=== PATIENT | male | born 1960 | race Caucasian/White ===

== ENCOUNTER → 2016-12-20 | Outpatient (CLI) | payer BC, OTHER ==
[~2016-12-20] MED LIST: ALTA1CAP2 PO; ASPI81TA85 PO; COUM2.5T17 PO; JARD1TAB PO; METF500T4 PO; PERC5TAB12 PO; SIMV40TA2 PO; TRES1INJ2 SC; TRUL0.5I SC
[2016-12-20 11:11] LABS: INR 0.96
[2016-12-20 11:12] LABS: MEAN CORPUSCULAR HEMOGLOBIN 30.6 pg (27.0-33.0); MEAN CORPUSCULAR HGB CONC 33.9 g/dl (32.0-36.5); MEAN CORPUSCULAR VOLUME 90.1 fl (80.0-96.0); RED CELL DISTRIBUTION WIDTH 12.3 % (11.5-14.5)
--- NOTE | 2016-12-20 11:19 | REP ---
Clinical: Preoperative assessment . Comparison: None . Technique: PA and lateral. Findings: The mediastinum and cardiac silhouette are normal. Airway is midline and patent. The lung garcia are clear and without acute consolidation, effusion, or pneumothorax. Impression: 1. No acute cardiopulmonary process. Signed by Mario Bergman MD 12/20/2016 11:10 A
[2016-12-20 11:37] LABS: ALBUMIN 3.7 GM/DL (3.2-5.2); ALBUMIN/GLOBULIN RATIO 1.68 (1.00-1.93); ALKALINE PHOSPHATASE 79 U/L (45-117); ALT/SGPT 21 U/L (12-78); ANION GAP 8 MEQ/L (8-16); AST/SGOT 7 U/L (15-37); BILIRUBIN,TOTAL 0.5 MG/DL (0.2-1.0); BLOOD UREA NITROGEN 23 MG/DL (7-18); CALCIUM LEVEL 8.8 MG/DL (8.5-10.1); CARBON DIOXIDE LEVEL 30 MEQ/L (21-32); CHLORIDE LEVEL 102 MEQ/L (98-107); CREATININE FOR GFR 1.16 MG/DL (0.70-1.30); GLOMERULAR FILTRATION RATE > 60.0 (>56); GLUCOSE, FASTING 315 MG/DL (70-105); POTASSIUM SERUM 4.4 MEQ/L (3.5-5.1); SODIUM LEVEL 140 MEQ/L (136-145); TOTAL PROTEIN 5.9 GM/DL (6.4-8.2)
--- NOTE | 2016-12-20 21:40 | ECGEPIP ---
Stationary ECG Study [facility] Test Date: 2016-12-20 Pat Name: SHELDON RENTERIA Department: Room: - Gender: M Specialty Molder: [facility] : 1960 Requested By: Mario Fam Order Number: [id number] Reading MD: Jv Lu Measurements Intervals [place] Rate: 87 P: 52 IA: 187 QRS: -17 QRSD: 89 T: 43 QT: 357 QTc: 432 Interpretive Statements Normal sinus rhythm Leftward axis Incomplete right bundle branch block Comparison tracing not on file Electronically Signed On 12-20-2016 21:39:59 EDT by Jv Lu
== END ==
LOC: M ADMPAT 09:18
PROVIDERS: ATTEND Orthopaedic Surgery
DX: Z01.818 Encounter for other preprocedural examination (principal); M16.12 Unilateral primary osteoarthritis, left hip

== ENCOUNTER 2017-01-02 05:39 | Inpatient (IN) | payer BC, OTHER ==
[2016-12-20 09:35] VITALS: BP 110/78
--- NOTE | 2016-12-29 13:55 | HPE ---
DATE OF ADMISSION: 01/02/2017 HISTORY OF PRESENT ILLNESS: This is a pleasant male with continuing symptomatic left hip osteoarthritis. The patient has consented for a left total hip arthroplasty per Dr. Sarwat Smith. Medical optimization per Dr. Duran, which I have not seen clearance note. This is per the patient's history. X-rays are consistent with advanced osteoarthritis. ALLERGIES: None known to drugs. MEDICATION LIST: Includes: - simvastatin 40 mg - Ramipril 2.5 mg - Metformin HCl 500 mg - Bydureon 2 mg - Tresiba flex touch 100 units per mL - Aspir-Low 81 mg MEDICAL PROBLEM LIST: Includes: Symptomatic hip osteoarthritis. Diabetes. Hypercholesteremia. PAST SURGICAL HISTORY: Cholecystectomy, left ankle, tympanostomy tube insertion, tonsillectomy, heart catheter. FAMILY HISTORY: Cancer. SOCIAL HISTORY: Denies smoking. Rare ethanol intake. Denies illicit drugs. REVIEW OF SYSTEMS: Denies chest pain, shortness of breath, dyspnea on exertion, fever, chills, malaise, upper respiratory, urinary tract symptoms. Labs were reviewed which showed glucose of 315, BUN 23, glucose 3+ on UA, urobilinogen 2.0. Urine culture final. Nasal and sinus culture showed heavy Moraxella catarrhalis. Chest x-ray: No acute cardiopulmonary process as read by Dr. Bergman. EKG normal sinus rhythm. PHYSICAL EXAMINATION: This is a pleasant overweight white male in no acute distress. He is alert and oriented times three. Mood and affect are appropriate. He is ambulating with favoring of his right lower extremity. No gross antalgia to the left. Left hip range of motion is limited and irritable through internal and external range of motion. Bowel soft, nontender. Chest: Rises symmetrically. Neck: Supple. Negative jugular venous distention (JVD) or bruits. IMPRESSION: 1. Symptomatic left hip osteoarthritis. 2. The patient has consented for left total hip arthroplasty per Dr. Sarwat Smith. 3. Medical optimization per Dr. Duran, which we are awaiting his clearance. 4. On-call to OR, 2 grams IV Kefzol in OR. 5. Sequential compression devices (SCD) and thromboembolic deterrent stockings (TEDS) in OR. MTDD
[~2017-01-02] VITALS: Ht 172.7 cm; Wt 81.6 kg
[2017-01-02] VITALS (7 sets, daily range): BP systolic 112–131; BP diastolic 63–84
[~2017-01-02 05:39] MED LIST changes: -COUM2.5T17 PO; -PERC5TAB12 PO
[2017-01-02] MEDS ORDERED: LR 1,000 ML IV SCH ×2 (06:00→10:00)
[2017-01-02] MEDS ORDERED: LIDOCAINE 1% SDV 5 ML VIAL SQ ONE (06:00)
[2017-01-02] MEDS ORDERED: ACETAMINOPHEN 500 MG TAB PO ONE (06:00)
[2017-01-02] MEDS ORDERED: ceFAZolin 1GM INJ (J0690) As Ordered ONE (06:27)
[2017-01-02] MEDS ORDERED: PHENYLephrine HCL 500 MCG/5 ML (100MCG/ML) SYRINGE (J2370) As Ordered ONE (08:12)
[2017-01-02] MEDS ORDERED: dexameTHASONE 4 MG/ML 1ML VIAL (J1100) As Ordered ONE (08:12)
[2017-01-02] MEDS ORDERED: MIDAZOLAM INJ 2 MG/2 ML VIAL (J2250) As Ordered ONE ×2 (08:12→08:33)
[2017-01-02] MEDS ORDERED: fentaNYL 100 MCG/2 ML INJECTION (J3010) As Ordered ONE (08:12)
[2017-01-02] MEDS ORDERED: PROPOFOL 200 MG/20 ML VIAL As Ordered ONE (08:12)
[2017-01-02] MEDS ORDERED: LIDOCAINE 2% INJ 100 MG/5 ML SDV (FOR ANES.) As Ordered ONE (08:12)
[2017-01-02] MEDS ORDERED: ePHEDrine SULFATE 25 MG/5 ML(5MG/ML) SYRINGE As Ordered ONE (08:12)
[2017-01-02] MEDS ORDERED: ONDANSETRON 4MG/2ML VIAL (J2405) As Ordered ONE (08:12)
[2017-01-02] MEDS ORDERED: MORPHINE 1MG/ML IN 0.9% NACL 100ML IV BAG As Ordered ONE (09:13)
[2017-01-02] MEDS ORDERED: ONDANSETRON 4MG/2ML VIAL (J2405) IV PRN ×2 (10:00)
[2017-01-02] MEDS ORDERED: diphenhydrAMINE INJ 50MG/ML VIAL (J1200) IV PRN (10:00)
[2017-01-02] MEDS ORDERED: EPIDURAL/PCA KEYS XX PRN (10:00)
[2017-01-02] MEDS ORDERED: FLEET ENEMA PR PRN (10:00)
[2017-01-02] MEDS ORDERED: MORPHINE 1MG/ML IN 0.9% NACL 100ML IV BAG IV PRN (10:00)
[2017-01-02] MEDS ORDERED: ACETAMINOPHEN TAB 650MG DOSE (2X325MG) PO PRN (10:00)
[2017-01-02] MEDS ORDERED: fentaNYL 100 MCG/2 ML INJECTION (J3010) IV PRN (10:00)
[2017-01-02] MEDS ORDERED: NALOXONE INJ 0.4 MG/1 ML VIAL (J2310) IV PRN (10:00)
[2017-01-02] MEDS ORDERED: NALBUPHINE HCL 10 MG/ML AMP (J2300) IV PRN (10:00)
[2017-01-02] MEDS: LR 1,000 ML IV SCH ×2 (12:03→14:46)
[2017-01-02] MEDS ORDERED: GLUCAGON FOR INJ 1 MG VIAL (J1610) SC PRN (14:30)
[2017-01-02] MEDS ORDERED: GLUCOSE 4 GM CHEW TABLET PO PRN (14:30)
[2017-01-02] MEDS ORDERED: DEXTROSE 50% 50 ML SYRINGE IV PRN (14:30)
--- NOTE | 2017-01-02 14:37 | CR ---
DATE OF CONSULTATION: 01/02/2017 SURGEON: Dr. Sarwat Smith PRIMARY CARE PROVIDER: Dr. Duran in [place] HOSPITALIST: Dr. Tiny Olsen Mr. Daugherty is a 56-year-old seen postoperatively after left total hip surgery by Dr. Sarwat Smith. He is having no chest pain, shortness of breath, dyspnea or dizziness. Medical history shows type 2 diabetes on numerous agents, which will be summarized below, hypertension, hyperlipidemia. His diabetes is under more than adequate control. His last hemoglobin A1/c was 5.8%. He denies any hypoglycemic episodes. He has an senior engineering associate that he follows with. MEDICATIONS: - Tresiva U 200, 26 units daily - Jardianz 10 mg daily - Trulicity 1.5 mg weekly - metformin 1500 mg daily - aspirin 81 mg daily - ramipril 2.5 mg daily - simvastatin 40 mg daily ALLERGIES: None known. PHYSICAL EXAMINATION: 105/60, pulse of 101, respiratory rate 16, 100% oxygen saturation. GENERAL APPEARANCE: Resting in bed, no distress. Alert and conversant. HEENT: Unremarkable. LUNGS: Clear. HEART: Regular without murmur. ABDOMEN: Soft, nontender. LABORATORY DATA: Preoperative laboratories were reviewed and unremarkable. Outpatient hemoglobin A1/c is reportedly 5.8%. IMPRESSION: 1. Type 2 diabetes. At this point, we recommend holding all the oral agents, as well as his Tresiva and Trulicity. Fingerstick blood sugar before food and nightly with coverage advised in the first 24 hours until oral intake is assured and at that point could reintroduce some of his previous medications. Pharmacy needs to be cautious if the Tresiva is used as it is a U 200 insulin and he currently uses 26 units per day. 2. Hyperlipidemia. Simvastatin 40 mg daily will be continued. 3. Hypertension. Hold his Ramipril. Systolic pressure is in the 100s. Restart based upon tomorrow's blood pressures. Dr. Tiny Olsen will be assuming medical care in the morning.
[2017-01-02] MEDS: SIMVASTATIN 40 MG TAB PO SCH (14:47)
[2017-01-02] MEDS ORDERED: WARFARIN SOD 5 MG TAB PO ONE (17:00)
[2017-01-02] MEDS: HumaLOG INSULIN (NovoLOG) PER UNIT SC SCH ×2 (17:44→20:55)
[2017-01-03 02:00] VITALS: BP 129/63
[2017-01-03 06:00] VITALS: BP 117/70
[2017-01-03] MEDS ORDERED: ONDANSETRON 4 MG TAB (S0181) PO PRN (06:45)
[2017-01-03] MEDS ORDERED: PERCOCET 5MG/325MG TAB PO PRN (06:45)
[2017-01-03 07:14] LABS: INR 1.13
[2017-01-03 07:15] LABS: MEAN CORPUSCULAR HEMOGLOBIN 30.7 pg (27.0-33.0); MEAN CORPUSCULAR HGB CONC 33.7 g/dl (32.0-36.5); MEAN CORPUSCULAR VOLUME 91.2 fl (80.0-96.0); RED CELL DISTRIBUTION WIDTH 12.7 % (11.5-14.5); WHITE BLOOD COUNT 8.6 K/mm3 (4.0-10.0)
[2017-01-03] MEDS: HumaLOG INSULIN (NovoLOG) PER UNIT SC SCH ×5 (07:30→21:00)
[2017-01-03 07:31] LABS: CALCIUM LEVEL 8.6 MG/DL (8.5-10.1); CREATININE FOR GFR 1.31 MG/DL (0.70-1.30); GLOMERULAR FILTRATION RATE 59.8 (>56); POTASSIUM SERUM 4.2 MEQ/L (3.5-5.1)
--- NOTE | 2017-01-03 08:27 | RO ---
DATE OF PROCEDURE: 01/02/2017 PREOPERATIVE DIAGNOSIS: Left hip degenerative arthritis. POSTOPERATIVE DIAGNOSIS: Left hip degenerative arthritis. PROCEDURE: Left total hip arthroplasty using a size 6 standard [place] stem with a +5 neck and a 36 mm ceramic head with a 56 mm Gription Sector cup with two screws and a neutral polyethylene liner. Prosthesis was made by [employer]. SURGEON: Dr. Mario Smith DRILLER AND BROACHER: Mr. Tra Quintanilla ANESTHESIA: Spinal. ESTIMATED BLOOD LOSS: 250 mL. SPECIMENS: Femoral head. COMPLICATIONS: None. DESCRIPTION OF PROCEDURE: Antibiotics were given intravenously preoperatively, then a successful spinal anesthetic was induced. Then, his Peters catheter was placed and he was placed in a lateral decubitus position on the [place] hip positioner. The down leg was well padded, especially the peroneal nerve, and an axillary roll was utilized. His left hip area was then carefully prepped and draped in the usual sterile fashion. Then, after appropriate time-out, a longitudinal incision was made for a direct lateral approach to the hip. Bovie cautery was used to coagulate through crossing vessels down to the tensor fascia, which was then divided in line with the skin incision. The gluteus medius was split in the anterior one-third/posterior two-third junction. Underlying that, the gluteus minimus and anterior hip capsule was divided and carefully dissected off the proximal femur as we externally rotated and dislocated the hip anteriorly and placed the leg in a leg bag. Starter reamer was placed in the piriformis fossa, followed by canal finding reamer, then the lateralizing reamer. Then we reamed up to a size #6 reamer. Femoral neck osteotomy was performed using the template. Then we began broaching up to a size 6 broach. Calcar planer was utilized. I then exposed the acetabulum and performed a labral excision 360 degrees and then began reaming, beginning with a 47 mm reamer advanced up to a 55 mm reamer. It is noteworthy that the acetabulum was quite shallow, but I did ream down to the floor of the acetabulum. There was a large anterior cyst that was actually anterior and superior, which was curetted and then bone grafted with the reamings. A trial 56 fit the best, but it was still quite a shallow acetabulum; thus, I elected to use the Gription cup and help fix with screws. After copiously pulsatile lavage irrigating, I then placed the real 56 cup using the extramedullary alignment jig to help set our version and abduction; and actually the Gription cup had fairly good fixation. The central hole eliminator was placed, and then I placed two screws by drilling, measuring 20 mm with each screw, and then placing 20 mm screw with good purchase in each. The neutral polyethylene liner was then placed after irrigating, and then we exposed the proximal femur. Once again, copiously pulsatile lavage irrigated out the femur and then placed the #6 broach and then trialed with a standard stem 1.5 neck length. Actually had very good stability with flexion, internal rotation and extension, external rotation, but there was a little bit of excess telescoping; thus, I trialed with a +5 and that had corrected that and, thus, I elected to go with a +5. I removed the broach, irrigated out the femoral canal, placed the real #6 [place] stem and then the +5 ceramic head, and then reduced the hip after irrigating once again. I then closed the gluteus minimus and anterior hip capsule back anatomically with interrupted #1 PDS sutures. I then closed the gluteus medius back anatomically with interrupted #1 PDS sutures. Closed the tensor fascia with interrupted #1 PDS sutures distally and then a running #1 STRATAFIX. I then irrigated between layers. Closed the deep subdermal tissues with interrupted #2-0 PDS sutures. Skin was closed with joanne, covered by Adaptic dry sterile bulky dressing. The patient was turned spine and then transferred to the recovery room in stable condition. There were no intraoperative complications. Mr. Tra Quintanilla was critical through the success of this operation by helping to manipulate the hip in and out of the leg bag several times throughout the operation, help to apply appropriate soft tissue retraction as necessary to perform the operation smoothly and efficiently, help to close the wound, and help prepare the patient.
[2017-01-03] MEDS: MOM 30ML SUSPENSION UDC PO SCH (09:06)
[2017-01-03] MEDS: MIRALAX *UNIT DOSE* 17GM PACKET PO SCH (09:06)
[2017-01-03] MEDS: SIMVASTATIN 40 MG TAB PO SCH (09:06)
[2017-01-03] MEDS: SENOKOT S TAB PO SCH ×2 (09:06→21:57)
[2017-01-03] MEDS: PERCOCET 5MG/325MG TAB PO PRN ×3 (09:07→21:57)
[2017-01-03 10:00] VITALS: BP 124/64
--- NOTE | 2017-01-03 13:13 | REP ---
Left hip: Two views. History: Recheck placement. Findings: AP and cross-table lateral views of the left hip demonstrate that the patient is status post left hip arthroplasty. Femoral and acetabular components are well aligned with respect to each other and their [place] bones. Lateral skin joanne are seen. Impression: Left hip arthroplasty in good position. Signed by Roger Duke MD 01/03/2017 03:52 P
[2017-01-03 14:00] VITALS: BP 118/65
[2017-01-03] MEDS ORDERED: WARFARIN SOD 5 MG TAB PO ONE ×2 (17:00)
[2017-01-03 18:00] VITALS: BP 127/67
[2017-01-03 22:00] VITALS: BP 107/67
--- NOTE | 2017-01-03 22:12 | ECGEPIP ---
Stationary ECG Study [facility] Test Date: 2017-01-03 Pat Name: SHELDON RENTERIA Department: Room: [place] [address] Gender: M Dental Hygiene Administrative Assistant: [facility] : 1960 Requested By: BOB ENRIQUEZ Order Number: [id number] Reading MD: Jv Lu Measurements Intervals [place] Rate: 111 P: 26 NV: 140 QRS: -26 QRSD: 80 T: 30 QT: 322 QTc: 438 Interpretive Statements Sinus tachycardia Left axis deviation Nonspecific T wave abnormality No significant change when compared to prior tracing of 12/20/2016 Electronically Signed On 01-03-2017 22:11:57 EDT by Jv Lu
[2017-01-04 06:00] VITALS: BP 110/70
[2017-01-04] MEDS: PERCOCET 5MG/325MG TAB PO PRN ×2 (06:00→17:09)
[2017-01-04 07:10] LABS: INR 1.3
[2017-01-04 07:11] LABS: ANION GAP 6 MEQ/L (8-16); BLOOD UREA NITROGEN 18 MG/DL (7-18); CALCIUM LEVEL 8.4 MG/DL (8.5-10.1); CARBON DIOXIDE LEVEL 29 MEQ/L (21-32); CHLORIDE LEVEL 103 MEQ/L (98-107); CREATININE FOR GFR 1.05 MG/DL (0.70-1.30); GLOMERULAR FILTRATION RATE > 60.0 (>56); GLUCOSE, FASTING 160 MG/DL (70-105); MEAN CORPUSCULAR HEMOGLOBIN 30.5 pg (27.0-33.0); MEAN CORPUSCULAR HGB CONC 34.2 g/dl (32.0-36.5); MEAN CORPUSCULAR VOLUME 89.3 fl (80.0-96.0); POTASSIUM SERUM 4.2 MEQ/L (3.5-5.1); RED CELL DISTRIBUTION WIDTH 12.3 % (11.5-14.5); SODIUM LEVEL 138 MEQ/L (136-145); WHITE BLOOD COUNT 9.7 K/mm3 (4.0-10.0)
[2017-01-04] MEDS ORDERED: PERC5TAB12 PO (08:04)
[2017-01-04] MEDS ORDERED: COUM2.5T17 PO (08:04)
[2017-01-04] MEDS: HumaLOG INSULIN (NovoLOG) PER UNIT SC SCH ×2 (08:06→12:27)
[2017-01-04] MEDS: MIRALAX *UNIT DOSE* 17GM PACKET PO SCH (08:06)
[2017-01-04] MEDS: MOM 30ML SUSPENSION UDC PO SCH (08:06)
[2017-01-04] MEDS: SENOKOT S TAB PO SCH (08:07)
[2017-01-04] MEDS: SIMVASTATIN 40 MG TAB PO SCH (08:07)
[2017-01-04 14:00] VITALS: BP 127/79
--- NOTE | 2017-01-11 10:24 | DSES ---
DATE OF ADMISSION: 01/02/2017 DATE OF DISCHARGE: 01/04/2017 ATTENDING PHYSICIAN: Dr. Sarwat Smith ADMITTING DIAGNOSIS: Osteoarthritis left hip. OTHER DIAGNOSES: Diabetes type 2. Hypertension. Elevated lipids. DISCHARGE DIAGNOSIS: Osteoarthritis left hip status post left total hip arthroplasty. OPERATION PERFORMED: Left total hip arthroplasty. HISTORY: This is a pleasant, 56-year-old male patient with progressively worsening left hip pain and stiffness who failed to improve with conservative management. He was admitted for elective hip replacement on the left side. HOSPITAL COURSE: The patient was admitted on day of surgery, underwent a left total hip arthroplasty, which was uneventful. He did well in the postoperative period. His hospital course was without complications. He was up with physical therapy per protocol. His pain was controlled on day of discharge. He was doing well, weightbearing as tolerated on his left lower extremity. He will use adjusted dose Coumadin and thromboembolic deterrent (RICK) stockings for 30 days postoperative for deep venous thrombosis (DVT) prophylaxis. He will resume his preoperative medications and diet. He was given instructions to include but not limited to wound monitoring activity limitations. He will use oral pain medications. He will followup in our office in 10-14 days for surgical followup. For further information, please refer the medical record.
== END 2017-01-04 17:55 | disposition home health service (06) | DRG 301 ==
LOC: M OR 05:39 → M MS5PR 11:00
PROVIDERS: ADMIT Orthopaedic Surgery; ATTEND Orthopaedic Surgery
PROC: 0SRB0JA Replacement of Left Hip Joint with Synthetic Substitute, Uncemented, Open Approach (ICD-10-PCS; principal; 2017-01-02 07:30)
DX: M16.12 Unilateral primary osteoarthritis, left hip (principal); I10 Essential (primary) hypertension; E11.9 Type 2 diabetes mellitus without complications; E78.00 Pure hypercholesterolemia, unspecified; Z79.82 Long term (current) use of aspirin; Z79.899 Other long term (current) drug therapy; Z90.49 Acquired absence of other specified parts of digestive tract; E78.5 Hyperlipidemia, unspecified; Z79.4 Long term (current) use of insulin

== ENCOUNTER → 2017-01-19 | Outpatient (REF) | payer OTHER ==
[~2017-01-19] MED LIST changes: +COUM2.5T17 PO; +PERC5TAB12 PO
[2017-01-19 16:05] LABS: INR 1.55
== END ==
LOC: M LABDRAW1 13:41
PROVIDERS: ATTEND Orthopaedic Surgery
DX: Z79.01 Long term (current) use of anticoagulants (principal)

== ENCOUNTER 2018-11-26 08:22 | Day surgery (SDC) | payer BC, OTHER ==
[~2018-11-26] VITALS: Ht 172.7 cm; Wt 70.8 kg
[~2018-11-26 08:22] MED LIST changes: +ASPI81TA26 PO; +CIPRODEX OTIC SUSP 7.5ML As Ordered ONE; +DILT120C61 PO; +ELIQ5TAB PO; +IMBR420T PO; +INSUH10VL SC; +PROBCAP14 PO
[2018-11-26] MEDS ORDERED: PROPOFOL 200 MG/20 ML VIAL As Ordered ONE (09:57)
[2018-11-26] MEDS ORDERED: fentaNYL 100 MCG/2 ML INJECTION (J3010) As Ordered ONE (09:57)
[2018-11-26] MEDS ORDERED: MIDAZOLAM INJ 2 MG/2 ML VIAL (J2250) As Ordered ONE (09:57)
[2018-11-26] MEDS ORDERED: METOCLOPRAMIDE INJ 10MG/2ML VIAL (J2765) IV PRN (10:30)
[2018-11-26] MEDS ORDERED: IBUPROFEN 800 MG TAB PO PRN (10:30)
[2018-11-26] MEDS ORDERED: ONDANSETRON 4MG/2ML VIAL (J2405) IV PRN (10:30)
[2018-11-26] MEDS ORDERED: PERCOCET 5MG/325MG TAB PO PRN (10:30)
[2018-11-26] MEDS ORDERED: LR 1,000 ML IV SCH (10:30)
[2018-11-26 10:52] VITALS: BP 100/62
--- NOTE | 2018-11-28 14:28 | RO ---
DATE OF OPERATION: 11/26/2018 PREOPERATIVE DIAGNOSIS: Chronic otitis media. POSTOPERATIVE DIAGNOSIS: Chronic otitis media. PROCEDURE: Bilateral myringotomy tubes. SURGEON: Dr. Barron Titus PATIENT REGISTRATION MANAGER: ANESTHESIA: INDICATIONS: This is a 58-year-old who has been followed now for several months with middle ear fluid and conductive hearing loss in both ears. CT scan demonstrated fluid in the mastoid as well as fluid in the middle ear. DESCRIPTION OF PROCEDURE: Satisfactory mask anesthesia administered, right ear examined and cleaned under the microscope. sclerosis noted. An anterior inferior myringotomy was made. A small amount of serous fluid was suctined. Middle ear mucosa appeared to be normal. A beveled bobbin tube inserted. Ciprodex instilled. Left ear examined and cleaned under the microscope with similar findings. Anterior inferior myringotomy made. Serous fluid suctioned. A beveled bobbin tube inserted. Ciprodex drops instilled. He tolerated the procedure well, was sent to recovery in satisfactory condition. He will be seen back in the office in a 1 week for followup audiogram.
== END 2018-11-26 11:38 | disposition home or self-care (01) ==
LOC: M SDC 08:22
PROVIDERS: ATTEND Specialist
DX: H65.23 Chronic serous otitis media, bilateral (principal); E78.5 Hyperlipidemia, unspecified; E11.9 Type 2 diabetes mellitus without complications; Z79.01 Long term (current) use of anticoagulants; Z79.84 Long term (current) use of oral hypoglycemic drugs; Z79.4 Long term (current) use of insulin; C91.10 Chronic lymphocytic leukemia of B-cell type not having achieved remission; Z92.21 Personal history of antineoplastic chemotherapy; Z79.899 Other long term (current) drug therapy
CPT/HCPCS: 69436; J2250; J3010

== ENCOUNTER → 2023-05-26 | Outpatient (CLI) | payer BC, OTHER ==
[~2023-05-26] MED LIST changes: -ASPI81TA85 PO; +ASPI81TA86 PO; -CIPRODEX OTIC SUSP 7.5ML As Ordered ONE; -DILT120C61 PO; +DILT120C89 PO; +ISOVUE-300 61% 100ML VIAL As Ordered ONE; +LIDOCAINE 1% MDV 20ML VIAL As Ordered ONE; +METF-838 PO; -METF500T4 PO; -SIMV40TA2 PO; +SIMV40TA20 PO; +methylPREDNISolone SUSP 40MG/ML 1ML VIAL (DEPO MEDROL) As Ordered ONE
== END ==
LOC: M RAD 13:11
PROVIDERS: ATTEND Physician Assistant
DX: M16.11 Unilateral primary osteoarthritis, right hip (principal)
CPT/HCPCS: 20610; 77002; J1030; Q9967

== ENCOUNTER → 2023-11-29 | Outpatient (CLI) | payer MEDICARE, BC ==
[~2023-11-29] MED LIST changes: -ISOVUE-300 61% 100ML VIAL As Ordered ONE; -LIDOCAINE 1% MDV 20ML VIAL As Ordered ONE; -methylPREDNISolone SUSP 40MG/ML 1ML VIAL (DEPO MEDROL) As Ordered ONE
[2023-11-29 16:25] LABS: HEMATOCRIT 37.1 % (42.0-52.0); HEMOGLOBIN 12.2 g/dl (13.5-17.5); MEAN CORPUSCULAR HEMOGLOBIN 31.7 pg (27.0-33.0); MEAN CORPUSCULAR HGB CONC 32.9 g/dl (32.0-36.5); MEAN CORPUSCULAR VOLUME 96.4 fl (80.0-96.0); PLATELET COUNT, AUTOMATED 219 10^3/uL (150-450); RED BLOOD COUNT 3.85 10^6/uL (4.30-6.10); WHITE BLOOD COUNT 5.3 10^3/uL (4.0-10.0)
[2023-11-29 16:31] LABS: ERYTHROCYTE SEDIMENTATION RATE < 1 mm/hr (0-20)
[2023-11-29 16:38] LABS: INR 2.58; PROTHROMBIN TIME 26.8 SECONDS (12.5-14.5)
[2023-11-29 16:57] LABS: ALBUMIN 3.5 G/DL (3.2-5.2); ALKALINE PHOSPHATASE 55 U/L (46-116); ALT/SGPT 19 U/L (7.0-40); AST/SGOT 10 U/L (<34); BILIRUBIN,TOTAL 0.4 MG/DL (0.3-1.2); BLOOD UREA NITROGEN 24 MG/DL (9-23); CALCIUM LEVEL 8.7 MG/DL (8.3-10.6); CARBON DIOXIDE LEVEL 29 MMOL/L (20-31); CHLORIDE LEVEL 109 MMOL/L (98-107); CREATININE FOR GFR 1.18 MG/DL (0.70-1.30); GLOMERULAR FILTRATION RATE > 60.0 (>49); GLUCOSE, FASTING 107 MG/DL (74-106); POTASSIUM SERUM 4.3 MMOL/L (3.5-5.1); SODIUM LEVEL 141 MMOL/L (136-145); TOTAL PROTEIN 5.5 G/DL (5.7-8.2)
== END ==
LOC: M RAD 15:09
PROVIDERS: ATTEND Orthopaedic Surgery
DX: Z01.818 Encounter for other preprocedural examination (principal); M16.11 Unilateral primary osteoarthritis, right hip; Z79.01 Long term (current) use of anticoagulants

== ENCOUNTER → 2024-02-19 | Outpatient (REF) | payer MEDICARE, BC | LOC: M LAB REF 08:17 | PROVIDERS: ATTEND Surgery | DX: D23.4 Other benign neoplasm of skin of scalp and neck (principal); D04.39 Carcinoma in situ of skin of other parts of face; D23.5 Other benign neoplasm of skin of trunk ==

== ENCOUNTER → 2025-03-18 | Outpatient (REF) | payer MEDICARE, OTHER | LOC: M LAB REF 17:42 | PROVIDERS: ATTEND Podiatrist | DX: L03.032 Cellulitis of left toe (principal) ==